=== PATIENT | female | born 1955 | race Caucasian/White ===

== ENCOUNTER 2020-03-18 08:27 | Outpatient (CLI) | payer MEDICARE, SELFPAY ==
--- NOTE | ~2020-03-18 | US_ITS ---
US abdomen complete EXAMINATION: US Abdomen Complete INDICATION: Normal liver function tests. PROCEDURE: Realtime High Resolution abdomen ultrasound. COMPARISON: No prior studies for comparison FINDINGS: Gallbladder is surgically absent. Common bile duct measures 4 mm. Liver echotexture within normal limits without focal mass. Pancreas within normal limits. Pancreati c tail is obscured by bowel gas. Spleen is unremarkeable. Renal echotexture is within normal limits bilaterally without hydronephrosis, contour deforming mass or renal stone. Right kidney measures 9.3 cm. Left kidney measures 11 cm. Visualized aspects of the aorta and IVC are within normal limits. Portal vein is patent. IMPRESSION: 1: Unremarkable abdominal ultrasound. Reviewed, dictated and finalized at location A. TAL SPECIALIST
== END 2020-03-18 08:28 | disposition home or self-care (01) ==
PROVIDERS: PCP Family Medicine; Visit Provider Family Medicine
DX: R94.5 Abnormal results of liver function studies (principal)
CPT/HCPCS: 76700

== ENCOUNTER 2021-10-10 10:22 | Outpatient (CLI) | payer MEDICARE, SELFPAY ==
[2021-10-10 19:00] LABS: Basophils Absolute Auto 0.1 K/mm3 (0.0-0.1); Basophils Percent Auto 0.8 % (0.2-1.2); Eosinophils Absolute Auto 0.4 K/mm3 (0-0.3); Eosinophils Percent Auto 5.3 % (0-4.4); Hematocrit 43.1 % (37.0-47.0); Hemoglobin 13.6 g/dL (12.0-15.0); Immature Granulocyte Absolute 0.01 K/mm3 (0.00-0.031); Immature Granulocyte Percent A 0.1 % (0-0.5); Lymphocytes Absolute Auto 2.26 K/mm3 (0.9-3.2); Lymphocytes Percent Auto 29.4 % (18.3-44.2); Mean Corpuscular HGB Conc 31.6 g/dl (32-36); Mean Corpuscular Hemoglobin 30.2 pg (26-34); Mean Corpuscular Volume 95.6 fl (80-100); Monocytes Absolute Auto 0.3 K/mm3 (0.1-0.6); Monocytes Percent Auto 4.3 % (2.6-8.5); Neutrophils Absolute Auto 4.6 K/mm3 (1.3-6.7); Neutrophils Percent Auto 60.1 % (45.5-73.1); Platelet Count Result 277 k/mm3 (150-375); Red Blood Count 4.51 M/mm3 (4.2-5.4); Red Cell Distribution Width 12.8 % (11.5-14.5); White Blood Count 7.7 K/mm3 (4.5-10.0)
[2021-10-10 20:18] LABS: Alanine Aminotransferase 27 U/L (6-35); Albumin Level 4.5 g/dL (3.5-5.1); Alkaline Phosphatase 60 U/L (38-126); Anion Gap 8 mmol/L (8-16); Aspartate Amino Transferase 34 U/L (14-36); Bilirubin,Total 1.6 mg/dL (0.2-1.3); Blood Urea Nitrogen 14 mg/dL (7-17); Calcium 9.2 mg/dL (8.4-10.2); Carbon Dioxide 33 mmol/L (22-30); Chloride 104 mmol/L (98-107); Cholesterol 138 mg/dL (0-200); Estimated Glomerular Filt Rate > 60; Glucose 97 mg/dL (65-110); HDL Direct 52 mg/dL; Potassium 4.2 mmol/L (3.4-5.0); Sodium 145 mmol/L (137-145); Triglycerides 113 mg/dL (<150)
[2021-10-10 20:26] LABS: Hepatitis C Virus Antibody Negative (Negative)
[2021-10-10 20:29] LABS: LDL Cholesterol Direct 52 mg/dL
== END 2021-10-10 10:23 | disposition home or self-care (01) ==
PROVIDERS: PCP Family Medicine; Visit Provider Family Medicine
DX: E55.9 Vitamin D deficiency, unspecified (principal); E78.2 Mixed hyperlipidemia; G47.33 Obstructive sleep apnea (adult) (pediatric); Z11.59 Encounter for screening for other viral diseases
CPT/HCPCS: 36415; 80053; 80061; 82306; 84443; 85025; 86803

== ENCOUNTER 2022-06-03 08:55 | Outpatient (CLI) | payer MEDICARE, SELFPAY ==
[2022-06-03 19:03] LABS: Alanine Aminotransferase 29 U/L (6-35); Albumin Level 4.4 g/dL (3.5-5.1); Alkaline Phosphatase 72 U/L (38-126); Anion Gap 9 mmol/L (8-16); Aspartate Amino Transferase 26 U/L (14-36); Basophils Absolute Auto 0.1 K/mm3 (0.0-0.1); Basophils Percent Auto 0.9 % (0.2-1.2); Bilirubin,Total 1.4 mg/dL (0.2-1.3); Blood Urea Nitrogen 10 mg/dL (7-17); Calcium 9.4 mg/dL (8.4-10.2); Carbon Dioxide 31 mmol/L (22-30); Chloride 102 mmol/L (98-107); Cholesterol 138 mg/dL (0-200); Eosinophils Absolute Auto 0.4 K/mm3 (0-0.3); Eosinophils Percent Auto 4.8 % (0-4.4); Estimated Glomerular Filt Rate > 60; Glucose 82 mg/dL (65-110); HDL Direct 55 mg/dL; Hematocrit 44.5 % (37.0-47.0); Hemoglobin 13.8 g/dL (12.0-15.0); Immature Granulocyte Absolute 0.01 K/mm3 (0.00-0.031); Immature Granulocyte Percent A 0.1 % (0-0.5); Lymphocytes Absolute Auto 2.29 K/mm3 (0.9-3.2); Lymphocytes Percent Auto 29.7 % (18.3-44.2); Mean Corpuscular Hemoglobin 29.2 pg (26-34); Mean Corpuscular Volume 94.3 fl (80-100); Mean Platelet Volume 10.8 fl (7.4-10.4); Monocytes Absolute Auto 0.4 K/mm3 (0.1-0.6); Monocytes Percent Auto 5.2 % (2.6-8.5); Neutrophils Absolute Auto 4.6 K/mm3 (1.3-6.7); Neutrophils Percent Auto 59.3 % (45.5-73.1); Platelet Count Result 292 k/mm3 (150-375); Potassium 4.1 mmol/L (3.4-5.0); Red Blood Count 4.72 M/mm3 (4.2-5.4); Red Cell Distribution Width 13.3 % (11.5-14.5); Sodium 142 mmol/L (137-145); Triglycerides 86 mg/dL (<150); White Blood Count 7.7 K/mm3 (4.5-10.0)
[2022-06-03 19:09] LABS: Vitamin D 25 Hydroxy 56.2 ng/mL
[2022-06-03 19:14] LABS: LDL Cholesterol Direct 63 mg/dL
== END 2022-06-03 08:56 | disposition home or self-care (01) ==
LOC: ANHGOSHLAB 08:56
PROVIDERS: PCP Family Medicine; Visit Provider Family Medicine
DX: E55.9 Vitamin D deficiency, unspecified (principal); M81.0 Age-related osteoporosis without current pathological fracture; R41.3 Other amnesia; Z79.899 Other long term (current) drug therapy
CPT/HCPCS: 36415; 80053; 80061; 82306; 84443; 85025

== ENCOUNTER 2022-10-22 23:12 | Outpatient (NON) | payer MEDICARE, SELFPAY | END 2022-10-22 23:13 | disposition home or self-care (01) | LOC: ANHLAB 23:14 | PROVIDERS: PCP Family Medicine; Visit Provider Family Medicine | DX: R39.9 Unspecified symptoms and signs involving the genitourinary system (principal) | CPT/HCPCS: 87086 ==

== ENCOUNTER 2022-11-12 12:30 | Outpatient (CLI) | payer MEDICARE, SELFPAY ==
[2022-11-12 19:43] LABS: Alanine Aminotransferase 28 U/L (6-35); Albumin Level 4.2 g/dL (3.5-5.1); Alkaline Phosphatase 55 U/L (38-126); Anion Gap 6 mmol/L (8-16); Aspartate Amino Transferase 63 U/L (14-36); Bilirubin,Total 2.1 mg/dL (0.2-1.3); Blood Urea Nitrogen 9 mg/dL (7-17); Calcium 9.6 mg/dL (8.4-10.2); Carbon Dioxide 33 mmol/L (22-30); Chloride 103 mmol/L (98-107); Estimated Glomerular Filt Rate > 60; Glucose 105 mg/dL (65-110); Sodium 142 mmol/L (137-145)
[2022-11-12 20:13] LABS: Thyroid Stimulating Hormone 0.858 uIU/mL (0.465-4.680)
== END 2022-11-12 12:31 | disposition home or self-care (01) ==
LOC: ANHGOSHLAB 12:32
PROVIDERS: PCP Family Medicine; Visit Provider Family Medicine
DX: R25.3 Fasciculation (principal)
CPT/HCPCS: 36415; 80053; 84443

== ENCOUNTER → 2022-11-14 10:07 | Outpatient (CLI) | payer MEDICARE, SELFPAY ==
--- NOTE | ~2022-11-14 | US_ITS ---
EXAMINATION: US abdomen limited DATE: 11/14/2022 11:14 INDICATION: Elevated liver enzymes TECHNIQUE: Multiple grayscale and Doppler ultrasound images of the abdomen were obtained. COMPARISON: 03/18/2020 FINDINGS: The head and body of the pancreas are normal. The pancreatic tail is obscured by bowel gas. The liver is normal with normal echogenicity and echotexture. No surface nodularity. Normal hepatope jo flow in the main portal vein. There are changes of cholecystectomy. The normal common bile duct m easures 6 mm. IMPRESSION: 1. No sonographic correlate for the patient's symptoms. Reviewed, dictated and finalized at location B.
== END ==
PROVIDERS: PCP Family Medicine; Visit Provider Family Medicine
DX: R94.5 Abnormal results of liver function studies (principal)
CPT/HCPCS: 76705

== ENCOUNTER 2022-12-03 05:53 | Emergency (ER) | payer MEDICARE, SELFPAY ==
--- NOTE | ~2022-12-03 | CT_ITS ---
EXAMINATION: CT brain wo con DATE: 12/03/2022 07:20 INDICATION: Head injury. TECHNIQUE: Computed tomography (CT) of the head was performed without intravenous contrast. The mA wa s adjusted according to patient size. Iterative reconstruction technique was employed. The dose-lengt h product was 681.00 mGy-cm. COMPARISON: None FINDINGS: There are scattered areas of low attenuation in the cerebral white matter. There is an old lacunar infarct in left thalamus. There is no intracranial hemorrhage, acute infarction, or abnormal intracranial mass lesion. The ventricles are normal in size. There is a left frontal scalp laceration with soft tissue swelling. There is mild mucosal thickening in the ethmoid sinuses. The orbits are n ormal. The mastoid air cells are normal. IMPRESSION: 1. Old lacunar infarct in left thalamus. 2. Moderate nonspecific cerebral white matter disease, which likely represents chronic small vessel i schemic disease. Reviewed, dictated and finalized at location E. IMPRESSION: 1. Old lacunar infarct in left thalamus. 2. Moderate nonspecific cerebral white matter disease, which likely represents chronic small vessel ischemic disease.
[2022-12-03 05:55] VITALS: BP 133/75; PULSE 74; RESP 18; TEMP 36.3; O2SAT 100
--- NOTE | 2022-12-03 07:15 | ED.WOUNDLAC ---
HPI - Wound/Laceration General Chief Complaint: Wound/Laceration Stated Complaint: fell out of bed and hit the nightstand Time Seen by Provider: 12/03/22 06:58 History of Present Illness HPI narrative: Patient is a 67-year-old female who presents ER status post falling out of bed. She struck her head on the nightstand. She has a laceration to her forehead. It is oozing blood. No LOC. No change in vision or hearing. No extremity injury. No numbness/tingling. Denies headache. Related Data Home Medications Medication Instructions Recorded Confirmed aspirin 81 mg tablet,delayed 81 mg PO DAILY 08/09/19 11/06/22 release (Adult Aspirin Regimen) calcium carbonate 600 mg calcium 600 mg PO DAILY 08/09/19 11/06/22 (1,500 mg) tablet acetaminophen 500 mg tablet 500 mg PO Q6H PRN 05/14/22 11/06/22 (Tylenol Extra Strength) cholecalciferol (vitamin D3) 25 25 mcg PO DAILY 05/14/22 11/06/22 mcg (1,000 unit) capsule donepezil 5 mg tablet (Aricept) 5 mg PO QHS 05/14/22 11/06/22 melatonin 5 mg capsule 5 mg PO 05/14/22 11/06/22 Allergies Allergy/AdvReac Type Severity Reaction Status Date / Time animal dander Allergy Unknown -cats(sneez Verified 11/06/22 14:24 ing/itchyey es) naproxen AdvReac Mild Leg cramps Verified 12/03/22 07:20 tramadol AdvReac Unknown Nausea Verified 12/03/22 07:20 Review of Systems Review of Systems: All systems reviewed & are unremarkable except as noted in HPI and below Cardiovascular: Cardiovascular: Reports no additional cardiovascular complaints Respiratory: Respiratory: Reports no additional respiratory complaints Gastrointestinal: Gastrointestinal: Reports no additional gastrointestinal complaints Genitourinary: Genitourinary: Reports no additional female genitourinary complaints Neurologic: Reports system reviewed and no additional complaints, except as documented PMF Past Medical History Medical History Adhesive capsulitis of left shoulder Dysesthesia Fam hx-osteoporosis FH: abdominal aortic aneurysm Low back pain Memory change Normal colonoscopy 2014 Other seasonal allergic rhinitis Surgical History Surgical History H/O vaginal hysterectomy 2006 Family History Family History Mother Family history of osteoporosis Family history of aortic aneurysm Father Family history of cardiovascular disease Family history of coronary artery disease Social History Social History Social History: Caffeine-none Smoking status: Never smoker Alcohol intake: never Substance use: never Substance use type: does not use Lack of Transportation: No Lack of Food: Never True Current Housing: I Have Housing Concerned About Future Housing: No Difficulty Paying Gas/Electric Bills: No Difficulty Paying for Meds: Decline to Answer Currently Unemployed: No Education: Bachelor's Degree Difficulty w/ Childcare or Family Care: No Exam Narrative: GENERAL: Well-appearing, well-nourished, and in no acute distress. HEAD: Normocephalic, 2.5 cm laceration above the left eyebrow. EYES: PERRL and EOMI. ABDOMEN: Soft, nontender, nondistended. EXTREMITIES: Normal range of motion. No edema. SKIN: Warm, dry, no rash. NEURO: No focal deficits. Alert and oriented x3. PSYCH: Normal mood and affect. Course Vital Signs Vital signs: Vital Signs Temperature 97.4 F L 12/03/22 05:55 Pulse Rate 74 12/03/22 05:55 Respiratory Rate 18 12/03/22 05:55 Blood Pressure 133/75 12/03/22 05:55 Pulse Oximetry 100 12/03/22 05:55 Oxygen Delivery Room Air 12/03/22 05:55 Temperature 97.4 F L 12/03/22 05:55 Pulse Rate 74 12/03/22 05:55 Respiratory Rate 18 12/03/22 05:55 Blood Pressure 133/75 12/03/22 05:55 Pul
== END 2022-12-03 07:57 | disposition home or self-care (01) ==
PROVIDERS: Emergency Provider Emergency Medicine; PCP Family Medicine
DX: S01.81XA Laceration without foreign body of other part of head, initial encounter (principal); Z90.710 Acquired absence of both cervix and uterus; Z79.82 Long term (current) use of aspirin; R90.82 White matter disease, unspecified; W06.XXXA Fall from bed, initial encounter
CPT/HCPCS: 12011; 70450; 99284

== ENCOUNTER 2023-01-22 15:20 | Outpatient (NON) | payer MEDICARE, SELFPAY | END 2023-01-22 15:21 | disposition home or self-care (01) | LOC: ANHGOSHLAB 15:21 | PROVIDERS: PCP Family Medicine; Visit Provider Family Medicine | DX: N39.3 Stress incontinence (female) (male) (principal) | CPT/HCPCS: 87086; 87088 ==

== ENCOUNTER 2023-01-27 15:30 | Emergency (ER) | payer MEDICARE, SELFPAY ==
[2023-01-27] VITALS (11 sets, daily range): BP systolic 136–164; BP diastolic 62–72; PULSE 84–99; RESP 12–20; TEMP 36.5; O2SAT 97–99
--- NOTE | ~2023-01-27 | CT_ITS ---
EXAMINATION: CT abdomen pelvis w con DATE: 01/27/2023 18:50 INDICATION: RUQ pain, N/V TECHNIQUE: Computed tomography (CT) of the abdomen and pelvis was performed with 100 mL Omnipaque-350 intravenous contrast. Automated exposure control and iterative reconstruction technique were employe d. The dose-length product was 301.99 mGy-cm. COMPARISON: None. FINDINGS: Lower thorax: Senescent changes in the lungs. Liver: Normal. Biliary/Gallbladder: Gallbladder is absent. No bile duct dilation. Pancreas: No mass or duct dilation. Spleen: Multiple hypodensities throughout the spleen, not clearly cystic. Adrenals:No mass. Kidneys: 3 mm right lower pole nonobstructing calcification. No hydronephrosis. Left midpole hypodens ity too small to characterize but most likely represents a cyst. GI tract: Mild antral wall edema. No small or large bowel dilation. Normal appendix. Diverticulosis w ithout diverticulitis. Mesentery/Peritoneum: No ascites, mass, or free air. Retroperitoneum: No mass. Atherosclerotic abdominal aortic and/or arterial calcifications. Pelvis: Normal urinary bladder. Absent uterus. Soft Tissues: Soft tissues and body wall unremarkable. Bones: No acute osseous finding. IMPRESSION: Multiple splenic lesions, differential includes lymphoma, metastases, sarcoid, fungal infection, and splenic siderosis. Mild antral gastritis. Reviewed, dictated and finalized at location K. RMATION TECHNOLOGY ASSISTANT
--- NOTE | 2023-01-27 16:43 | ED.ABDPAIN ---
HPI - Abdominal Pain General Chief Complaint: Abdominal Pain <SURJIT Dodge Last Filed: 01/27/23 16:51> Stated Complaint: abd pain <SURJIT Dodge Last Filed: 01/27/23 16:51> Time Seen by Provider: 01/27/23 17:14 <SURJIT Dodge Last Filed: 01/27/23 16:51> Source: patient and old records reviewed <SURJIT Dodge Last Filed: 01/27/23 16:51> Mode of arrival: ambulatory <SURJIT Dodge Filed: 01/27/23 16:51> Limitations: no limitations <SURJIT Dodge Last Filed: 01/27/23 16:51> History of Present Illness HPI narrative: Patient is a 67 y/o female who presents to the ED with c/o N/V. Patient reports she went to [employer] for lunch and went shopping afterwards. She developed nausea and vomiting on the way home. Reported several episodes. She does still feel nauseous currently. She states she has had intermittent pain and knots in her RUQ for the last 1 week. This pain was present with the vomiting today. She has not taken anything for the pain. Denies fevers today. She denies dysuria/hematuria but notes she is currently on Bactrim for a UTI, dx by her PCP on 01/22. Per records, urine cx was negative. <SURJIT Dodge Last Filed: 01/27/23 16:51> Related Data Home Medications: Home Medications Medication Instructions Recorded Confirmed aspirin 81 mg tablet,delayed 81 mg PO DAILY 08/09/19 01/22/23 release (Adult Aspirin Regimen) calcium carbonate 600 mg calcium 600 mg PO DAILY 08/09/19 01/22/23 (1,500 mg) tablet acetaminophen 500 mg tablet 500 mg PO Q6H PRN 05/14/22 01/22/23 (Tylenol Extra Strength) cholecalciferol (vitamin D3) 25 25 mcg PO DAILY 05/14/22 01/22/23 mcg (1,000 unit) capsule donepezil 5 mg tablet (Aricept) 5 mg PO QHS 05/14/22 01/22/23 suvorexant 10 mg tablet (Belsomra) 10 mg PO QHS 01/08/23 01/22/23 <Bharti Earl PA-C - Last Filed: 01/27/23 16:51> Allergies/Adverse Reactions: Allergies Allergy/AdvReac Type Severity Reaction Status Date / Time animal dander Allergy Unknown -cats(sneez Verified 01/22/23 13:23 ing/itchyey es) naproxen AdvReac Mild Leg cramps Verified 01/22/23 13:23 tramadol AdvReac Unknown Nausea Verified 01/22/23 13:23 <Bharti Earl PA-C - Last Filed: 01/27/23 16:51> Review of Systems Review of Systems: CONSTITUTIONAL: Denies fever GASTROINTESTINAL: Reports abdominal pain, nausea, vomiting. Denies diarrhea. GENITOURINARY: Denies dysuria <Luna Traore PA-C - Last Filed: 01/27/23 20:19> All systems reviewed & are unremarkable except as noted in HPI and below <Luna Traore PA-C - Last Filed: 01/27/23 20:19> Constitutional: Constitutional: Denies fever(s) <Bharti Earl PA-C - Last Filed: 01/27/23 16:51> Gastrointestinal: Gastrointestinal: Reports abdominal pain, Reports nausea and Reports vomiting <Bharti Earl PA-C - Last Filed: 01/27/23 16:51> [facility] Past Medical History Medical History: Medical History Adhesive capsulitis of left shoulder Dysesthesia Fam hx-osteoporosis FH: abdominal aortic aneurysm Low back pain Memory change Normal colonoscopy 2014 Other seasonal allergic rhinitis <Bharti Earl PA-C - Last Filed: 01/27/23 16:51> Surgical History Surgical History: Surgical History H/O vaginal hysterectomy 2006 <SURJIT Dodge Last Filed: 01/27/23 16:51> Family History Family History: Family History Mother Family history of osteoporosis Family history of aortic aneurysm Father Family history of cardiovascular disease Family history of coronary artery disease <Bharti Earl PA-C - Last Filed: 01/27/23 16:51> So
--- NOTE | 2023-01-27 16:46 | ECG_ITS ---
Measurements Intervals [place] Rate: 91 P: 71 CT: 183 QRS: -21 QRSD: 88 T: 54 QT: 388 QTc: 478 Interpretive Statements SINUS RHYTHM POSSIBLE LEFT ATRIAL ENLARGEMENT INCOMPLETE RIGHT BUNDLE BRANCH BLOCK BASELINE ARTIFACT- I, III, AVL, AVF BORDERLINE ECG NO PREVIOUS ECG AVAILABLE FOR COMPARISON Electronically Signed On 01-27-2023 20:56:05 ELECTROPLATING TECHNICIAN by Gerald Callahan D.O.
[2023-01-27] MEDS: ONDANSETRON INJ 4 MG/2 ML VIAL IV PUSH (17:01)
[2023-01-27] MEDS: SODIUM CHLORIDE 0.9% IV 1,000 ML 999 ML IV CONT (17:09)
[2023-01-27 17:16] LABS: Basophils Absolute Auto 0.1 K/mm3 (0.0-0.1); Basophils Percent Auto 0.5 % (0.2-1.2); Eosinophils Absolute Auto 0.1 K/mm3 (0-0.3); Eosinophils Percent Auto 1.1 % (0-4.4); Hematocrit 45.7 % (37.0-47.0); Hemoglobin 14.7 g/dL (12.0-15.0); Immature Granulocyte Absolute 0.03 K/mm3 (0.00-0.031); Immature Granulocyte Percent A 0.3 % (0-0.5); Lymphocytes Percent Auto 15.3 % (18.3-44.2); Mean Corpuscular HGB Conc 32.2 g/dl (32-36); Mean Corpuscular Hemoglobin 29.7 pg (26-34); Mean Corpuscular Volume 92.3 fl (80-100); Monocytes Absolute Auto 0.4 K/mm3 (0.1-0.6); Neutrophils Absolute Auto 8.2 K/mm3 (1.3-6.7); Neutrophils Percent Auto 78.8 % (45.5-73.1); Platelet Count Result 289 k/mm3 (150-375); Red Blood Count 4.95 M/mm3 (4.2-5.4); Red Cell Distribution Width 13.1 % (11.5-14.5); White Blood Count 10.4 K/mm3 (4.5-10.0)
[2023-01-27 18:21] LABS: Alanine Aminotransferase 30 U/L (6-35); Albumin Level 4.2 g/dL (3.5-5.1); Alkaline Phosphatase 65 U/L (38-126); Anion Gap 12 mmol/L (8-16); Aspartate Amino Transferase 29 U/L (14-36); Bilirubin,Total 1.7 mg/dL (0.2-1.3); Blood Urea Nitrogen 12 mg/dL (7-17); Calcium 9.2 mg/dL (8.4-10.2); Carbon Dioxide 24 mmol/L (22-30); Chloride 105 mmol/L (98-107); Estimated CRCL calculation 55 ml/min; Estimated Glomerular Filt Rate > 60; Glucose 117 mg/dL (65-110); Lipase 71 U/L (23-300); Potassium 3.6 mmol/L (3.4-5.0); Sodium 141 mmol/L (137-145)
[2023-01-27 18:32] LABS: Appearance Urine Cloudy (Clear); Bacteria Urine None Seen /hpf; Bilirubin Urine Negative (Negative); Blood Urine Negative (Negative); Color Urine Yellow (Yellow); Glucose Urine UA Negative (Negative); Ketones Urine Negative (Negative); Leukocyte Esterase Ur 2+ LEU/UL (Negative); Nitrate Urine Negative (Negative); Non Pathogenic Casts 0-2; Protein Urine Negative (Negative); RBC Urine 0-2 /hpf (0-2); Specific Grav Ur 1.011 (1.001-1.035); Squamous Epithelial Cell Urine None seen /hpf (Few)
[2023-01-27 18:35] LABS: Add Urine Microscopic? YES
[2023-01-27 18:35] LABS: Influenza A QL RT-PCR Negative (Negative); Influenza B QL RT-PCR Negative (Negative); SARS-CoV-2 RNA PCR Negative (Negative)
== END 2023-01-27 20:24 | disposition home or self-care (01) ==
PROVIDERS: Physician Assistant; Emergency Provider Physician Assistant; PCP Family Medicine
DX: K29.00 Acute gastritis without bleeding (principal); D73.9 Disease of spleen, unspecified; R82.998 Other abnormal findings in urine; Z20.822 Contact with and (suspected) exposure to COVID-19
CPT/HCPCS: 36415; 74177; 80053; 81001; 83690; 85025; 87086; 87636; 93005; 96361; 96374; 99284; J2405; J7030; Q9967

== ENCOUNTER → 2023-02-03 13:56 | Outpatient (CLI) | payer MEDICARE, SELFPAY ==
--- NOTE | ~2023-02-03 | XR_ITS ---
XR chest 2V 02/03/2023 14:13 Indication: Neck swelling Procedure: 2 view chest Comparison: No prior studies for comparison. Findings: Heart size normal. No No focal air space disease, pulmonary edema, pleural effusion or susp ected pneumothorax. No acute osseous abnormality. Impression: 1: No acute cardiopulmonary disease. Reviewed, dictated and finalized at location L. E COVER FOLDER Impression: 1: No acute cardiopulmonary disease.
== END ==
PROVIDERS: PCP Family Medicine; Visit Provider Family Medicine
DX: D73.89 Other diseases of spleen (principal)
CPT/HCPCS: 71046

== ENCOUNTER 2023-02-06 06:36 | Outpatient (CLI) | payer MEDICARE, SELFPAY ==
[2023-02-06 07:16] LABS: Basophils Absolute Auto 0.1 K/mm3 (0.0-0.1); Basophils Percent Auto 1.2 % (0.2-1.2); Eosinophils Absolute Auto 0.4 K/mm3 (0-0.3); Eosinophils Percent Auto 6.9 % (0-4.4); Hematocrit 45.6 % (37.0-47.0); Hemoglobin 14.5 g/dL (12.0-15.0); Immature Granulocyte Absolute 0.02 K/mm3 (0.00-0.031); Immature Granulocyte Percent A 0.3 % (0-0.5); Lymphocytes Absolute Auto 2.35 K/mm3 (0.9-3.2); Lymphocytes Percent Auto 39.6 % (18.3-44.2); Mean Corpuscular HGB Conc 31.8 g/dl (32-36); Mean Corpuscular Hemoglobin 30.1 pg (26-34); Mean Corpuscular Volume 94.6 fl (80-100); Monocytes Absolute Auto 0.3 K/mm3 (0.1-0.6); Monocytes Percent Auto 5.2 % (2.6-8.5); Neutrophils Absolute Auto 2.8 K/mm3 (1.3-6.7); Neutrophils Percent Auto 46.8 % (45.5-73.1); Platelet Count Result 287 k/mm3 (150-375); Red Blood Count 4.82 M/mm3 (4.2-5.4); Red Cell Distribution Width 13.3 % (11.5-14.5); White Blood Count 5.9 K/mm3 (4.5-10.0)
== END 2023-02-06 06:37 | disposition home or self-care (01) ==
PROVIDERS: PCP Family Medicine; Visit Provider Family Medicine
DX: D72.829 Elevated white blood cell count, unspecified (principal)
CPT/HCPCS: 36415; 85025

== ENCOUNTER 2023-03-16 12:30 | Outpatient (RCR) | payer MEDICARE, SELFPAY ==
--- NOTE | 2023-02-04 12:06 | OPREHPOC ---
Outpatient Therapy Plan of Care This is a Multidisciplinary Plan of Care that may contain components documented by all disciplines (PT, OT, and ST.) PT Problem 1 PT Problem #1 Knowledge Deficit PT Goal 1 Goal *indep with HEP PT Problem 2 PT Problem #2 Pain PT Goal 1 Goal *monitor pain in back and hips during session PT Problem 3 PT Problem #3 Impaired Strength PT Goal 1 Goal pt perform 20 reps with good control 1* side lying hip abduction R 2* side lying hip abduction L 3* supine bridge single leg standing x 10 seconds with good stability 4* R 5* L PT Problem 4 PT Problem #4 Impaired Functional Mobil PT Goal 1 Goal 1* pt ambulate 450' with the 2 minute walking test 2* Tinetti balance/gait score of 27/28 3* 5 reps sit/stand time of 14 seconds 4* pt transfer sit/floor with use of UE on mat, modified indep
--- NOTE | 2023-02-04 12:06 | PTOPEVAL1 ---
Assessment and note entered by Madeline Mclean, PT Evaluation Information Assessment Status Evaluation Diagnosis low back pain, s/p TIA, gait imbalance Onset about 1 year ago Subjective Information more problems with walking and balance, walking slower and issues getting around airport; some times dizzy and off balance; one fall, rolled out of bed early in AM and head hit night stand; at home, generally lie down, more secure, afraid of falling, more safe than sitting down. having issues with getting up from lying down, getting out of bath tub for bath and avoid steps-- insecure and a risk for falling; is having some memory issues; present during eval. ACTIVITY: home with , basement stairs-- avoids them; if is not home, she does not go down stairs, take shower or any risks to her balance. Is interested in joining a fitness center for more exercise. do not have any fitness equipment at home; Reported Pain Level Pain Score 2: Self Report Additional Pain Score Comments pain range of 1-4/10; back and L hip increase pain: getting out of bed, activity, walking Assessment PT Clinical Summary Violeta has the diagnosis of low back pain, decreased mobility. Her concern is fear of falling. She does have some memory issues, but was cooperative at evaluation and wants to walk better. Currently, does not do any fitness activity and has had gradual decrease in activity level--mostly stays home, but wants to go visit children and grandchildren. This involves more walking and going through the airport. Her Reggie was present during the eval and supportive to pt. She reports dizzy, imbalance and hard to get out of bed,bath tub and up from chairs. With the evaluation: she has decreased LE strength; 2 minute walking test distance of 375'; Tinetti gait / balance score of 23/28; vestibular BPPV testing was negative; with standing 360' turn she reported dizzy. Skilled PT services a
--- NOTE | 2023-03-16 13:24 | PTOPDC ---
Assessment and note entered by Madeline Mclean, PT Evaluation Information Assessment Status Discharge Diagnosis low back pain, s/p TIA, gait imbalance Onset about 1 year ago Subjective Information more steady with balance; been doing the exercises at home; have not had any falls since coming for therapy; problems getting up out of the bath tub hard to get up from the couch, standing up; went to visit her daughter in [place] and left her exercises there--needs another copy if she can; agree to discharge PT and continue with her exercises at home. Reported Pain Level Pain Score 5: Self Report Assessment PT Clinical Summary Violeta has received a total of 6 PT sessions. Compared to the initial evaluation: increase strength of LE's with mat exercises; 2 minute walking test distance increased from 375' to 450'; Tintetti balance score improved by 1 point and 5 reps sit/stand by 1 second; she is able to transfer sitting/floor with use of UE on mat, indep with verbal instructions; education completed for HEP; she has not had any falls since attending therapy, and she no longer reports a fear of falling ; The goals were partially met. Violeta and her agree to d/c PT services and continue with the exercises at home. Discharge PT. Plan of Care PT Services Indicated No
== END 2023-03-16 13:46 | disposition home or self-care (01) ==
LOC: ANHPT 12:30
PROVIDERS: PCP Family Medicine; Visit Provider Family Medicine
DX: R26.2 Difficulty in walking, not elsewhere classified (principal); Z86.73 Personal history of transient ischemic attack (TIA), and cerebral infarction without residual deficits
CPT/HCPCS: 97110; 97161; 97530

== ENCOUNTER → 2023-03-26 10:19 | Outpatient (CLI) | payer MEDICARE, SELFPAY ==
--- NOTE | ~2023-03-26 | US_ITS ---
EXAMINATION: US abdomen complete DATE: 03/26/2023 10:42 INDICATION: Multiple splenic lesions on CT TECHNIQUE: Multiple grayscale and Doppler ultrasound images of the abdomen were obtained. COMPARISON: CT, 01/27/2023 FINDINGS: Bowel gas obscures visualization of the pancreas. The visualized portions of the pancreas a re unremarkable. The liver is normal with normal echogenicity and echotexture. No surface nodularity. Normal hepatopetal flow in the main portal vein. Changes of cholecystectomy are noted. The normal co mmon bile duct measures 4 mm. There was no sonographic Huertas sign. The visualized portions of the ao rta and inferior vena cava are normal. The spleen measures 7.3 cm. There are multiple subtle, ill-defined hyperechoic lesions of the spleen. The largest measures approximately 1.9 cm. The right kidney measures 9.7 x 4.4 x 4.6 cm. There is a 10 mm stone of the right kidney lower pole. The left kidney measures 11.6 x 4.4 x 4.7 cm. The kidneys demonstrate normal parenchymal echogenicity. There is no hydronephrosis. IMPRESSION: 1. Multiple ill-defined lesions of the spleen with differential as previously discussed. Consider bio psy. Reviewed, dictated and finalized at location F. CCO SORTER IMPRESSION: 1. Multiple ill-defined lesions of the spleen with differential as previously d iscussed. Consider biopsy.
== END ==
PROVIDERS: PCP Family Medicine; Visit Provider Family Medicine
DX: D73.89 Other diseases of spleen (principal)
CPT/HCPCS: 76700

== ENCOUNTER 2023-07-17 10:33 | Outpatient (CLI) | payer MEDICARE, SELFPAY ==
--- NOTE | ~2023-07-17 | XR_ITS ---
Lumbosacral Spine: AP and lateral views Clinical History: Pain Findings: Mild levoscoliosis present. The vertebral bodies and posterior elements are intact. There is moderate degenerative disc narrowing at L1-L2. There is moderate to advanced facet arthropathy L4- L5 and L5-S1. The sacroiliac joints are normally outlined. Impression: Degenerative change, as detailed above. Levoscoliosis. Reviewed, dictated and finalized at location . Impression: Degenerative change, as detailed above. Levoscoliosis.
--- NOTE | ~2023-07-17 | XR_ITS ---
AP view of the pelvis and AP and lateral views of the left hip Clinical history: Pain Findings: No acute fracture or dislocation is seen. Osseous alignment is anatomic. Bilateral hip and SI joint spaces are preserved. Soft tissues are unremarkable. Impression: No significant abnormality is seen. Reviewed, dictated and finalized at [facility]. Impression: No significant abnormality is seen.
== END 2023-07-17 10:34 ==
LOC: GOSHIMG 10:34
PROVIDERS: PCP Family Medicine; Visit Provider Nurse Practitioner Family
DX: M41.86 Other forms of scoliosis, lumbar region (principal); M47.896 Other spondylosis, lumbar region; M25.552 Pain in left hip
CPT/HCPCS: 72100; 73502

== ENCOUNTER 2023-08-20 11:30 | Outpatient (RCR) | payer MEDICARE, SELFPAY ==
--- NOTE | 2023-08-10 17:21 | PTOPEVAL1 ---
Assessment and note entered by Nuvia Ayala, PT Evaluation Information Assessment Status Evaluation Diagnosis Dorsalgia, L low Back and R hip pain Therapy Conditions weakness, pain, balance and gait impairment Onset approx a month ago Subjective Information Pt reports starting to feel pain to lowback and hips area; unable to recall significant event that caused it. Walking distances, sitting and standing for long periods of time increases pain. Medication and heat/cold modalities relieve some of the pain. Pt also states she has alzheimer's Disease and has increased fear of falling. States that she is hopeful that therapy can help improve her strength and mobility. Reported Pain Level Pain Score 4,4: Self Report Assessment PT Clinical Summary Pt is 67yo female who presents to therapy with pain to L lowerback, R hip; decreased mobility to B hips, weakness to BLE R > L, postural deficits, balance and gait impairments. Significant PMHx include dementia, TIA with some weakness noted to R side. Pt will benefit from continued skilled PT to improve functional mobility and reduce risk for falls. Plan of Care Interventions Gait Training,Manual Therapy,Neuro Re-education, Patient/Caregiver Education,Therapeutic Activities, Therapeutic Exercise PT Services Indicated Yes Treatment Frequency and 2x/wk x 8 visits Duration These treatments will address the objective and functional deficits as defined above. The patient will be advanced safely and appropriately in order for the patient to progress towards his/her prior level of function. Additional exercises will be introduced and as well as a comprehensive home exercise program upon discharge, if needed, ?to ensure carryover of functional gains achieved in the clinic. This treatment plan has been reviewed and agreement upon by the patient.
--- NOTE | 2023-10-29 10:50 | PCPTNOTE ---
Mrs. Kelley attended a total of 4 treatment sessions from 08/10/23 to 08/20/23. She provided reports of decreasing pain during her last session and was able to complete therapeutic activities focused on standing endurance and function without pain increase. She has not returned to the clinic and will be discharged from our care at this time. Thank you for the referral of this patient. Osiel Washington, MPT
== END 2023-10-26 10:05 | disposition home or self-care (01) ==
LOC: ANHPT 11:30
PROVIDERS: PCP Family Medicine; Visit Provider Nurse Practitioner Family
DX: M54.9 Dorsalgia, unspecified (principal)
CPT/HCPCS: 97110; 97116; 97140; 97161; 97530

== ENCOUNTER 2023-09-11 07:35 | Outpatient (CLI) | payer MEDICARE, SELFPAY ==
[2023-09-11 08:32] LABS: Basophils Absolute Auto 0.1 K/mm3 (0.0-0.1); Basophils Percent Auto 0.9 % (0.2-1.2); Eosinophils Absolute Auto 0.3 K/mm3 (0-0.3); Eosinophils Percent Auto 4.8 % (0-4.4); Hematocrit 44.7 % (37.0-47.0); Hemoglobin 14.2 g/dL (12.0-15.0); Immature Granulocyte Absolute 0.01 K/mm3 (0.00-0.031); Immature Granulocyte Percent A 0.2 % (0-0.5); Lymphocytes Absolute Auto 1.96 K/mm3 (0.9-3.2); Lymphocytes Percent Auto 30.6 % (18.3-44.2); Mean Corpuscular HGB Conc 31.8 g/dl (32-36); Mean Corpuscular Hemoglobin 30.1 pg (26-34); Mean Corpuscular Volume 94.9 fl (80-100); Mean Platelet Volume 10.1 fl (7.4-10.4); Monocytes Absolute Auto 0.4 K/mm3 (0.1-0.6); Monocytes Percent Auto 6.1 % (2.6-8.5); Neutrophils Absolute Auto 3.7 K/mm3 (1.3-6.7); Neutrophils Percent Auto 57.4 % (45.5-73.1); Platelet Count Result 271 k/mm3 (150-375); Red Blood Count 4.71 M/mm3 (4.2-5.4); White Blood Count 6.4 K/mm3 (4.5-10.0)
[2023-09-11 08:43] LABS: Alanine Aminotransferase 23 U/L (6-35); Albumin Level 4.3 g/dL (3.5-5.1); Alkaline Phosphatase 62 U/L (38-126); Anion Gap 3 mmol/L (4-12); Aspartate Amino Transferase 25 U/L (14-36); Bilirubin,Total 2.5 mg/dL (0.2-1.3); Blood Urea Nitrogen 15 mg/dL (7-17); Calcium 9.5 mg/dL (8.4-10.2); Carbon Dioxide 34 mmol/L (22-30); Chloride 105 mmol/L (98-107); Cholesterol 134 mg/dL (0-200); Estimated Glomerular Filt Rate > 60; Glucose 100 mg/dL (65-110); HDL Direct 58 mg/dL; Potassium 3.7 mmol/L (3.4-5.0); Sodium 142 mmol/L (137-145); Triglycerides 102 mg/dL (<150)
[2023-09-11 08:55] LABS: LDL Cholesterol Direct 65 mg/dL
== END 2023-09-11 07:36 | disposition home or self-care (01) ==
PROVIDERS: PCP Family Medicine; Visit Provider Family Medicine
DX: F01.50 Vascular dementia, unspecified severity, without behavioral disturbance, psychotic disturbance, mood disturbance, and anxiety (principal); E78.2 Mixed hyperlipidemia; D48.5 Neoplasm of uncertain behavior of skin; M81.0 Age-related osteoporosis without current pathological fracture
CPT/HCPCS: 36415; 80053; 80061; 82306; 82607; 82728; 84443; 85025

== ENCOUNTER 2024-04-29 09:28 | Outpatient (CLI) | payer MEDICARE, SELFPAY ==
--- NOTE | ~2024-04-29 | XR_ITS ---
EXAMINATION: XR sacrum coccyx min 2V DATE: 04/29/2024 09:53 INDICATION: Unspecified injury of lower back, initial encounter. TECHNIQUE: 3 views of the sacrum and coccyx were obtained. COMPARISON: CT abdomen and pelvis 01/27/2023 FINDINGS: There is lumbar levoscoliosis and severe spondylosis. No fracture. There is mild osteoarthr itis of the sacroiliac joints. IMPRESSION: 1. Mild osteoarthritis of the sacroiliac joints. Reviewed, dictated and finalized at location A. D AIDE
--- NOTE | ~2024-04-29 | XR_ITS ---
EXAMINATION: XR lumbar spine 2-3V DATE: 04/29/2024 09:53 INDICATION: Unspecified injury of low back, initial encounter. TECHNIQUE: 3 views of lumbar spine were obtained. COMPARISON: Lumbar spine radiographs 07/17/2023, CT abdomen and pelvis 01/27/2023 FINDINGS: There is 15 degrees levoscoliosis of lumbar spine. Vertebral body heights are normal. There is moderately decreased disc height at L1-L2, mildly decreased disc at L2-L3, moderately decreased d isc height at L3-L4, and severely decreased disc height at L5-S1. There is multilevel facet joint ost eoarthritis, severe on the left at L5-S1. IMPRESSION: 1. Severe lumbar spondylosis. 2. Lumbar levoscoliosis. Reviewed, dictated and finalized at location A. UITER ACCOUNT MANAGER
== END 2024-04-29 09:29 | disposition home or self-care (01) ==
LOC: GOSHIMG 09:28
PROVIDERS: PCP Nurse Practitioner Family; Visit Provider Nurse Practitioner Family
DX: M47.898 Other spondylosis, sacral and sacrococcygeal region (principal); M47.816 Spondylosis without myelopathy or radiculopathy, lumbar region; M41.86 Other forms of scoliosis, lumbar region; S39.92XA Unspecified injury of lower back, initial encounter; X58.XXXA Exposure to other specified factors, initial encounter
CPT/HCPCS: 72100; 72220

== ENCOUNTER 2024-11-10 08:09 | Outpatient (CLI) | payer MEDICARE, SELFPAY ==
--- NOTE | ~2024-11-10 | MM_ITS ---
EXAMINATION: MM screening [facility] BI w ofe HISTORY: Screening TECHNIQUE: Craniocaudal and mediolateral oblique 3-D tomosynthesis images were obtained and synthetic 2-D images were generated. CAD analysis was submitted and interpreted. COMPARISON: Mammograms from 06/19/2022, 02/19/2021 BREAST PARENCHYMAL COMPOSITION: The breasts are heterogeneously dense, which may obscure small masses. FINDINGS: There is no evidence of suspicious mass, calcification, or architectural distortion to suggest malignancy. Focal asymmetry in the upper right breast from the 11 to 1:00 position, middle depth. Limited study due to the patient's condition. Focal asymmetry in the upper outer quadrant of the left breast, middle depth. IMPRESSION: 1. Focal asymmetry in the upper right breast from the 11 to 1:00 position. The study is incomplete. A diagnostic right breast mammogram and a diagnostic right breast ultrasound is recommended. 2. Focal asymmetry in the upper outer quadrant of the left breast. The study is incomplete. A diagnostic left breast mammogram and a diagnostic left breast ultrasound is recommended. BI-RADS Category 0: Incomplete-needs additional imaging evaluation. Reviewed, dictated and finalized at location Q. IMPRESSION: 1. Focal asymmetry in the upper right breast from the 11 to 1:00 position. The study is incomplete. A diagnostic right breast mammogram and a diagnostic right breast ultrasound is recommended. 2. Focal asymmetry in the upper outer quadrant of the left breast. The study is incomplete. A diagnostic left breast mammogram and a diagnostic left breast ul trasound is recommended. BI-RADS Category 0: Incomplete-needs additional imaging evaluation.
--- OUTSIDE RECORDS SUMMARY | 2024-11-10 08:13 | XMS_ITS | Encounter Summary ---
Author Organization [facility] Address [address] [place] [address] Care Team Providers Care Aluminum Shingle Roofer Name Role Phone Spring Smith MD Primary Care Provider [phone] Encounter Details Date Type Department Care Team (Late st Contact Info) Description 09/17/2006 Outpatient Historical HIS [facility] Spring Mims MD [address] [facility] [address] [place] [address] Solitary Cyst of Breast (Primary Dx) Social History Tobacco Use Types Packs/Day Years Used Date Smoking Tobacco: Never Assessed Comments Unknown Sex and Gender Information Value Date Recorded Sex Assigned at Not on file Legal Sex Female 4:55 AM ENTRY EXAMINER Gender Identity Not on file Sexual Orientation Not on file documented as of this encounter Plan of Treatment Not on file documented as of this encounter Visit Diagnoses Diagnosis Solitary cyst of breast- Primary documented in this encounter Care Teams Aluminum Shingle Roofer Relationship Specialty Start Date End Date Spring Smith MD [address] [place] [address] [address] [place] [address] PCP - General 09/26/03 documented as of this encounter
--- OUTSIDE RECORDS SUMMARY | 2024-11-10 08:13 | XMS_ITS | Encounter Summary ---
Author Organization [facility] Address [address] [place] [address] Care Team Providers Care Accountant Tax Name Role Phone Spring Smith MD Primary Care Provider [phone]- [phone] Encounter Details Date Type Department Care Team (Late st Contact Info) Description 09/26/2003 Inpatient Historical HIS [facility] Rhett Garcia MD NO ADDRESS ON FILE Ness [place] MD [address] [facility] [address] [id number] SOLITARY CYST OF BREAST (Primary Dx) Social History Tobacco Use Types Packs/Day Years Used Date Smoking Tobacco: Never Assessed Comments Unknown Sex and Gender Information Value Date Recorded Sex Assigned at Not on file 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
--- OUTSIDE RECORDS SUMMARY | 2024-11-10 08:13 | XMS_ITS | Encounter Summary ---
Author Organization [facility] Address [address] [place] [address] Care Team Providers Care Events Intern Name Role Phone Spring Smith MD Primary Care Provider +1- [phone] Encounter Details Date Type Department Care Team (Late st Contact Info) Description 09/17/2006 Inpatient Historical HIS [facility] Rhett Garcia MD NO ADDRESS ON FILE Spring Smith MD [address] [facility] [address] [place] [address] Solitary Cyst of Breast (Primary Dx) Social History Tobacco Use Types Packs/Day Years Used Date Smoking Tobacco: Never Assessed Comments Unknown Sex and Gender Information Value Date Recorded Sex Assigned at Not on file Legal Sex Female 4:[address] Gender Identity Not on file Sexual Orientation Not on file documented as of this encounter Plan of Treatment Not on file documented as of this encounter Visit Diagnoses Diagnosis Solitary cyst of breast- Primary documented in this encounter Care Teams Events Intern Relationship Specialty Start Date End Date Spring Smith MD [address] [facility] [address] [place] [address] PCP - General 09/26/03 documented as of this encounter
--- OUTSIDE RECORDS SUMMARY | 2024-11-10 08:13 | XMS_ITS | Encounter Summary ---
Author Organization [facility] Address [address] [place] [address] Care Team Providers Care Pvc Loader Name Role Phone Spring Smith MD Primary Care Provider +1- [phone] Encounter Details Date Type Department Care Team (Late st Contact Info) Description 07/18/2004 Outpatient Historical [facility] Support Serv. ([facility]t Card[facility]) [address] 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
--- OUTSIDE RECORDS SUMMARY | 2024-11-10 08:13 | XMS_ITS | Encounter Summary ---
Author Organization [facility] Address [address] [place] [address] Care Team Providers Care Finishing Powder Press Operator Name Role Phone Spring Smith MD Primary Care Provider [phone]- [phone] Encounter Details Date Type Department Care Team (Late st Contact Info) Description 11/14/2003 Inpatient Historical HIS [facility] Rhett Garcia MD NO ADDRESS ON FILE Spring Smith MD [address] [facility] [address] [place] [address] DIFFUS CYSTIC MASTOPATHY (Primary Dx) Social History Tobacco Use Types Packs/Day Years Used Date Smoking Tobacco: Never Assessed Comments Unknown Sex and Gender Information Value Date Recorded Sex Assigned at Not on file 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
--- OUTSIDE RECORDS SUMMARY | 2024-11-10 08:14 | XMS_ITS | Clinical Summary ---
Author Organization [facility] Address [address] [place] [address] Phone Care Team Providers Care Track Moving Machine Operator Name Role Phone Spring Smith MD Primary Care Provider Allergies Active Allergy Reactions Criticality Noted Date Comments Gabapentin Nausea and Vomiting Low 07/13/2020 Naproxen Other (See Comments) 07/20/2018 Leg cramps Tramadol Nausea and Vomiting Low 10/01/2018 Ultra Tabs Nausea and Vomiting Low 10/01/2018 Medications rosuvastatin (CRESTOR) 20 mg tabletIndicatio ns:hyperlipidem ia Take 20 mg by mouth daily at bedtime. 11 06/25/2018 Active VITAMIN D2 50,000 unit capsule 04/21/2018 Active CALCIUM ORAL Take by mouth 2 times daily. Active ascorbic acid (VITAMIN C ORAL) Take by mouth. Active flaxseed oil (OMEGA 3 ORAL) Take by mouth. Active cyanocobalamin (VITAMIN B-12) 500 mcg tablet Take 500 mcg by mouth daily. Active VITAMIN E ACETATE ORAL Take by mouth. Active aspirin (ECOTRIN EC) 81 mg Tablet, Delayed Release (E.C.) Take 81 mg by mouth daily. Active psyllium husk (METAMUCIL ORAL) Take by mouth daily. Active DULoxetine (CYMBALTA) 30 mg Capsule, Delayed Release(E.C.)In dications:pain Take 30 mg by mouth 2 times daily. Active acetaminophen (TYLENOL) 325 mg tablet Take 2 Tablets (650 mg) by mouth every 6 hours as needed for Other (See Comment) (See admin instructions ). 07/27/2020 Active ibuprofen (MOTRIN) 400 mg tablet Take 1 Tablet (400 mg) by mouth every 6 hours as needed for Pain, Mild. 07/27/2020 Active Active Problems Problem Noted Date Diagnosed Date Abnormal REM sleep, suspected 07/27/2020 Overview (07/27/2020): 07/27/2020: [facility] providers are arranging OP PSG for concerns that memory issues may be 2/2 a sleep disorder, OP f/u with Dr Schulz Mild cognitive impairment with memory loss 07/25 History of vaginal surgery 07/25/2020 Dyspareunia, female 07/23/2020 Vaginal prolapse 10/29/2018 Chronic pain disorder 07/28/2018 Asthma 07/28/2018 Transient ischemic attack 07/28/2018 Full incontinence of feces 06/24/2018 Degenerative disc disease, lumbar 05/13/2018 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, with R altered sensation and pain Hypercholesteremia 04/05/2018 Lentigines 08/05/2017 Rosacea 08/05/2017 Seborrheic keratosis 08/05/2017 Osteoporosis 02/20/2015 Abnormal finding on urinalysis Hallucinations, unspecified Resolved Problems Problem Noted Date Diagnosed Date Resolved Date Acute encephalopathy 07/25/2020 021 Immunizations Immunization Administration Dates Next Due (SHINGRIX)(50 YRS UP) ZOSTER VACCINE RECOMBINANT, 0.5 ML, IM 04/09/2018,02/06/2018 (SPIKEVAX) (12 YRS UP PRIMAR Y SERIES) COVID-19 VACCINE - [id number](PF) 100 MCG/0.5 ML IM SUSP 05/18/2020,04/20/2020 Influenza Seasonal Unspecified Formulation IM Family History Medical History Relation Name Comments Heart Disease Father Hypertension Mother Ovarian Cancer Neg Hx Relation Name Status Comments Father Mother Alive Social History Tobacco Use Types Packs/Day Years Used Date Smoking Tobacco: Never Smokeless Tobacco: Never Alcohol Use Standard Drinks/Week Comments Yes 0 (1 standard drink = 0.6 oz pur e alcohol) rare Comments No Sex and Gender Information Value Date Recorded Sex Assigned at Not on file 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 Gender Identity Not on file Sexual Orientation Not on file 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 Not on file Not on file Not on file Last Filed Vital Signs Vital Sign Reading Time Taken Comments Blood Pressure 128/57 07/27/2020 5:03 AM CDT Pulse 71 07/27/2020 5:03 AM CDT Temperature 36.5 C (97.7 F) 07/27/2020 5:03 AM CDT Respiratory Rate 16 07/27/2020 5:03 AM CDT Oxygen Saturation 100% 07/27/2020 5:03 AM CDT Inhaled Oxygen Concentration - - Weight 63.5 kg (140 lb) 10/22/2020 1:06 PM CDT Height 165.1 cm (5' 5) 10/22/2020 1:06 PM CDT Body Mass Index 23.3 10/22/2020 1:06 PM CDT Plan of Treatment Health Maintenance Due Date Last Done Comments DTAP/TDAP/TD VACCINES (1 - Tdap) 1973 FIT-DNA Q 3 years 09/12/1999 FIT/FOBT Q 1 year 09/12/1999 Flex Sig/CT Colonography Q 5 years 09/12/1999 RSV VACCINE (60+ or ) (1 - Risk 60-74 years 1-dose series) 2014 PNEUMOCOCCAL VACCINE 50+ YEA RS (2 of 2 - PPSV23, PCV20, or PCV21) 03/16/2020 01/20/2020 COLORECTAL SCREENING 03/09/2023 03/09/2013 (Previously completed) Colorectal Cancer Screening 03/09/2023 BREAST CANCER SCREENING 06/20/2023 06/20/19 23, 02/19/2021, 08/10/2019, Additional history exists INFLUENZA VACCINE (#1) 2024 0, 12/09/2018, 12/07/2017, Additional history exists COVID-19 Vaccine (3 - 2024-2 6 season) 2024 05/18/2020, 04/20/2020 OSTEOPOROSIS SCREENING 01/03/2027 2, 12/21/2020, 12/21/2020, Additional history exists ZOSTER VACCINE Completed 05/05/2018, 03/2018, 03/05/2018, Additional history exists Medical Devices Implanted Type Area Test And Turn Up Technician Device Identifier Shelf Expiration Date Model / Serial / Lot Sling Desara System Mandy-Ds01 - [id number] Implanted:Qty: 1 on 10/29/2018 by Buddy Vazquez MD at [facility] Sling N/A: Vagina [employer] 06/24/2023 MANDY-DS01 / / [id number] Procedures Procedure Name Priority Date/Time Associated Diagnosis Comments MAMMO 3D HENRRY SCREEN BILAT W OR WO CAD Routine 06/19/2022 11:05 AM CDT Breast cancer screening by mammogram XR DEXA BONE DENSITY AXIAL 1 OR MORE SITES Routine 05/25/2013 2:06 PM CDT Symptomatic menopausal or female climacteric states from Last 3 Months or Most Recently Relevant to Health Maintenance Results * MAMMO SCRN BILAT 3D HENRRY W OR WO CAD (06/19/2022 11:05 AM CDT) Anatomical Region Laterality Modality Breast Bilateral Mammography 06/19/2022 11:0 7 AM CDT Impressions 06/20/2022 11:52 AM CDT IMPRESSION: No mammographic evidence of malignancy. OVERALL FINAL ASSESSMENT: BI-RADS Category 1: Negative mammogram. RECOMMENDATION: Bilateral screening mammogram in one year. DICTATION LOCATION: [facility] Narrative 06/20/2022 11:52 AM CDT BILATERAL SCREENING DIGITAL MAMMOGRAM WITH 3D TOMOSYNTHESIS AND CAD DATE: 06/19/2022 11:05 AM COMPARISON: Multiple prior mammograms, dating back to 12/27/2015 and most recently 02/19/2021. HISTORY: Screening mammogram. TECHNIQUE: Low-dose full-field digital breast tomosynthesis examination was performed with 2D and 3D acquisitions. Examination is read in conjunction with computer aided detection. BREAST COMPOSITION: The breasts are heterogeneously dense, which may obscure small masses. FINDINGS: The best possible images were obtained. There is no suspicious mass, clustered microcalcification, or architectural distortion in either breast on 2D or 3D images. There has been no change in the mammographic appearance compared with the prior study. Procedure Note Kyle Mckeon MD - 06/20/2022 BILATERAL SCREENING DIGITAL MAMMOGRAM WITH 3D TOMOSYNTHESIS AND CAD DATE: 06/19/2022 11:05 AM COMPARISON: Multiple prior mammograms, dating back to 12/27/2015 and most recently 02/19/2021. HISTORY: Screening mammogram. TECHNIQUE: Low-dose full-field digital breast tomosynthesis examination was performed with 2D and 3D acquisitions. Examination is read in conjunction with computer aided detection. BREAST COMPOSITION: The breasts are heterogeneously dense, which may obscure small masses. FINDINGS: The best possible images were obtained. There is no suspicious mass, clustered microcalcification, or architectural distortion in either breast on 2D or 3D images. There has been no change in the mammographic appearance compared with the prior study. IMPRESSION: No mammographic evidence of malignancy. OVERALL FINAL ASSESSMENT: BI-RADS Category 1: Negative mammogram. RECOMMENDATION: Bilateral screening mammogram in one year. DICTATION LOCATION: [facility] us Spring Smith MD MAMMO ORDERABLES Final Resu lt * XR DEXA BONE DENSITY AXIAL 1 OR MORE SITES (05/25/2013 2:06 PM CDT) Anatomical Region Laterality Modality Digital Radiogra phy 05/25/2013 2:06 PM CDT Narrative 05/25/2013 2:17 PM CDT Examination: Bone Density Study (DXA) Clinical History: 57 year-old postmenopausal female. Compared to the prior bone density performed 10/10/2010 Findings: Lumbar Spine (L1-L4) T-score -0.1 1.17 g/sq cm Prior: 1.13 g/sq cm 3.4 % change Left femoral neck T-score -0.4 0.98 g/sq cm Prior: 0.99 g/sq cm -0.4 % change Right femoral neck T-score -0.4 0.98 g/sq cm Prior: 0.97 g/sq cm 1.4 % change IMPRESSION Normal bone mineral densities. Detailed report placed in [facility]. Dictated by Dr. Jey Arana MD Dictated from Location 1. Procedure Note Jey Arana MD - 05/25/2013 Examination: Bone Density Study (DXA) Clinical History: 57 year-old postmenopausal female. Compared to the prior bone density performed 10/10/2010 Findings: Lumbar Spine (L1-L4) T-score -0.1 1.17 g/sq cm Prior: 1.13 g/sq cm 3.4 % change Left femoral neck T-score -0.4 0.98 g/sq cm Prior: 0.99 g/sq cm -0.4 % change Right femoral neck T-score -0.4 0.98 g/sq cm Prior: 0.97 g/sq cm 1.4 % change IMPRESSION Normal bone mineral densities. Detailed report placed in [facility]. Dictated by Dr. Jey Arana MD Dictated from Location 1. Spring Smith MD DIAGNOSTIC IMAGING ORDERABL ES Final Result from Last 3 Months or Most Recently Relevant to Health Maintenance Insurance RX [employer] RX Member Subscriber Plan / Payer (Ef fective 2019-Present) Name:Violeta Kelley Relation to Subscriber:Self Name:Violeta Kelley Payer ID:Not on file Group ID:[id number] Type:RX Medicare Part D Address: [place] [address] Advance Directives For more information, please contact: [phone] * Full Code (Latest Code Status on File) Date Activated Date Inactivated Comments 07/25/2020 11:51 PM 07/27/2020 1:01 PM * Full Code Date Activated Date Inactivated Comments 07/23/2020 10:11 AM 07/23/2020 7:16 PM * Full Code Date Activated Date Inactivated Comments 10/29/2018 8:24 AM 10/29/2018 1:15 PM Care Teams Track Moving Machine Operator Relationship Specialty Start Date End Date Spring Smith MD [address] [facility] [address] [address] PCP - General 09/26/03
--- OUTSIDE RECORDS SUMMARY | 2024-11-10 08:14 | XMS_ITS | Encounter Summary ---
Author Organization [facility] Address [address] [place] [address] Care Team Providers Care Tank Car Mechanic Name Role Phone Spring Smith MD Primary Care Provider +1- [phone] Encounter Details Date Type Department Care Team (Late st Contact Info) Description 10/27/2005 Outpatient Historical HIS [facility] Osiel Mims MD [address] 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
--- OUTSIDE RECORDS SUMMARY | 2024-11-10 08:14 | XMS_ITS | Encounter Summary ---
Author Organization [facility] Address 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
--- OUTSIDE RECORDS SUMMARY | 2024-11-10 08:14 | XMS_ITS | Clinical Summary ---
Author Organization [facility] Address [address] [place] [address] Care Team Providers Care Insole Beveler Name Role Phone Spring Smith MD Primary Care Provider + Allergies Active Allergy Reactions Criticality Noted Date Comments Naproxen Muscle pain Medium 03/31/2018 LEG CRAMPS Tramadol Nausea only,Nausea & Vomiting Low 2018 Medications aspirin 81 mg tabletIndicatio ns:prevention of thrombosis Take 1 tablet (81 mg total) by mouth every morning Active calcium carbonate (CALCIUM 500 ORAL)Indication s:supplement Take 1 tablet by mouth daily 600 mg Active acetaminophen (TYLENOL) 500 mg tablet Take 2 tablets (1,000 mg total) by mouth every 6 (six) hours as needed for pain Most nights Active cholecalciferol (VITAMIN D-3) 1,000 unit capsuleIndicati ons:Vitamin D Deficiency Take 1 capsule (1,000 Units total) by mouth every morning Active ProAir RespiClick 90 mcg/actuation inhaler INHALE 2 PUFFS BY MOUTH EVERY 6 HOURS NEEDED FOR SHORTNESS OF BREATH 2 Active Myrbetriq 25 mg tablet extended release 24 hr Take 1 tablet (25 mg total) by mouth daily 4 Active rosuvastatin (CRESTOR) 20 mg tablet Take 1 tablet (20 mg total) by mouth daily Active clonazePAM (KlonoPIN) 0.5 mg tablet Take 1 tablet (0.5 mg total) by mouth daily as needed for anxiety Insomnia Active QUEtiapine (SEROquel) 25 mg tablet TAKE 1/2 TABLET BY MOUTH EVERY DAY AT BEDTIME 4 Active vibegron (Gemtesa) 75 mg tablet Take by mouth Active risperiDONE (RisperDAL) 0.5 mg tablet Take 1-2 tablets (0.5-1 mg total) by mouth nightly 4 Active sulfamethoxazol e-trimethoprim (BACTRIM DS) 800-160 mg per tablet Take 1 tablet by mouth every 12 (twelve) hours 4 Active lecanemab-irmb (LEQEMBI IV) Infuse 10 mg/kg into a venous catheter Active donepeziL (ARICEPT) 5 mg tablet Take 1 tablet (5 mg total) by mouth nightly 90 tablet 3 5 Active memantine (NAMENDA) 10 mg tablet TAKE 1 TABLET BY MOUTH TWICE DAILY 180 tablet [address] (CYMBALTA) 60 mg capsuleIndicati ons:Dejerine-Ro ussy syndrome Take 1 capsule (60 mg total) by mouth daily 90 capsule 3 5 10/28/[address] (CYMBALTA) 30 mg capsuleIndicati ons:Dejerine-Ro ussy syndrome TAKE 2 CAPSULES BY MOUTH DAILY 180 capsule 3 4 10/28/19 25 Discontinu ed(Reorder ) Active Problems Problem Noted Date Diagnosed Date Alzheimer's disease 05/21/2023 Assessment & Plan (05/21/2023 10:58 AM CDT): Cerebral spinal fluid c/w AD, discussed options for lecanemab/Leqembi, CS and patient will discuss with daughter and let us know. IVONNE (obstructive sleep apnea) 04/02/2021 Overview (12/04/2021): DIAGNOSIS: Obstructive sleep apnea PROCEDURE PERFORMED:(Camron 11/15/2021) Right hypoglossal nerve stimulator implantation Generator placement right chest wall Lead placement right intercostal muscle Osteopenia of multiple sites 12/21/2020 Hallucinations, unspecified 08/14/2020 Disturbance in sleep behavior 08/14/2020 Snoring 08/14/2020 Abnormal REM sleep 07/27/2020 Overview (08/14/2020): 07/27/2020: [facility] providers are arranging OP PSG for concerns that memory issues may be 2/2 a sleep disorder, OP f/u with Dr Schulz History of vaginal surgery 07/25/2020 Asthma 07/28/2018 Chronic pain disorder 07/28/2018 Transient ischemic attack 07/28/2018 Overview (04/13/2023): Followed by Dr. 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 We will continue Cymbalta 60 mg daily (she takes it as 30 mg BID). Continues aspirin 81 mg daily and rosuvastatin 20 mg daily. Assessment & Plan (04/13/2023 3:46 PM TOP FRAME FITTER): Followed by Dr. 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 We will continue Cymbalta 60 mg daily (she takes it as 30 mg BID). Continues aspirin 81 mg daily and rosuvastatin 20 mg daily. 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, with R altered sensation and pain Hypercholesteremia 04/05/2018 Llamas angioma 08/05/2017 Fibrous papule of skin 08/05/2017 Lentigines 08/05/2017 Pruritus 08/05/2017 Rosacea 08/05/2017 Seborrheic keratosis 08/05/2017 Spider veins 08/05/2017 Disorder of bone 06/24/2016 Osteoporosis 02/20/2015 Resolved Problems Problem Noted Date Diagnosed Date Resolved Date Progressive dementia with uncertain etiology 4 05/21/2023 Assessment & Plan (04/13/2023 3:44 PM TOP FRAME FITTER): Continue donepezil/Aricept 5 mg (did not increase d/t dreams, talking in sleep) Discussed lecanemab/Leqembi, she needs confirmatory testing first, they will read over options, this was discussed and let us know their preference Mild cognitive impairment with memory loss 07/25/2020 04/13/2023 Memory loss or impairment 06/26/2020 Encounters Date Type Department Care Team Description 11/02/2024 9:44 AM CDT - 11/02/2024 11:59 PM CDT Hospital Encounter [address] [address] Rose Mary Cordova RN Age-related osteoporosis without current pathological fracture (Primary Dx); Alzheimer's disease Discharge Disposition: Discharge to home or self care 10/27/2024 2:30 PM CDT Office Visit [facility] [address] [place] [address] Ever Hernandez MD Dejerine-Roussy [facility] 10/19/2024 1:48 PM CDT - 10/19/2024 11:59 PM CDT Hospital Encounter [address] [address] Melvi Layton RN Age-related osteoporosis without current pathological fracture (Primary Dx); Alzheimer's disease Discharge Disposition: Discharge to home or self care 10/05/2024 1:46 PM CDT - 10/05/2024 11:59 PM CDT Hospital Encounter [address] [address] Jennifer Ceballos RN Age-related osteoporosis without current pathological fracture (Primary Dx); Alzheimer's disease (HCC) Discharge Disposition: Discharge to home or self care 09/21/2024 1:44 PM CDT - 09/21/2024 11:59 PM CDT Hospital Encounter [address] [address] Age-related osteoporosis without current pathological fracture (Primary Dx); Alzheimer's disease (HCC) Discharge Disposition: Discharge to home or self care 09/07/2024 12:53 PM CDT - 09/07/2024 11:59 PM CDT Hospital Encounter [address] [address] Age-related osteoporosis without current pathological fracture (Primary Dx); Alzheimer's disease (HCC) Discharge Disposition: Discharge to home or self care 08/25/2024 8:45 AM CDT Office Visit [facility] [address] [address] Brianne Poe NP Alzheimer's disease (HCC) (Primary Dx) 08/25/2024 Documentation [facility] [address] [address] Mc Castillo MSW 08/24/2024 2:00 PM CDT - 08/24/2024 11:59 PM CDT Hospital Encounter [address] [address] Age-related osteoporosis without current pathological fracture (Primary Dx); Alzheimer's disease (HCC) Discharge Disposition: Discharge to home or self care 08/17/2024 2:05 PM CDT - 08/17/2024 11:59 PM CDT Hospital Encounter [address] [address] Age-related osteoporosis without current pathological fracture (Primary Dx) Discharge Disposition: Discharge to home or self care 08/10/2024 1:39 PM CDT - 08/10/2024 11:59 PM CDT Hospital Encounter [address] [address] Age-related osteoporosis without current pathological fracture (Primary Dx); Alzheimer's disease (HCC) Discharge Disposition: Discharge to home or self care from Last 3 Months Immunizations Immunization Administration Dates Next Due Influenza, Quadrivalent, Mayra l Culture-based MDCK, Preservative Free, Antibiotic Free, Intramuscular 12/09/2018 Influenza, Quadrivalent, Hig h Dose, Preservative Free, Intrr 11/16/2019 Influenza, Quadrivalent, Spl it, Preservative Free, Intramuscular 11/30/2017 Influenza, Trivalent, IM (MDV) 12/07/2017 Influenza, Trivalent, Preser vative Free, Intramuscular 12/10/2014 Moderna SARS-CoV-2 Monovalen t Vaccination (12+ YRS) 05/18/2020,04/20/2020 Pneumococcal Conjugate PCV 13 01/20/2020 ZOSTER Recombinant 05/05/2018, 9,03/05/2018,02/15 Surgical History Surgery Date Site/Laterality Comments COLONOSCOPY 03/09/2017 - 03/08/2018 CHOLECYSTECTOMY 03/09/2006 - 03/08/2007 SECTION 03/09/1983 - 03/08/1984 twins VAGINAL PROLAPSE REPAIR 07/23/2020 admitted 07/25 - 07/27/20 w acute encephalopathy - unceratain temporal events b/t anesthesia and AMS; refer to discharge summary in [facility] for details; Dr Rajan rec holding scopoloamine patch w 06/21/21 procedure HYSTERECTOMY 03/09/2006 - 03/08/2007 OTHER SURGICAL HISTORY 06/14/2021 Sleep Endoscopy Medical History Medical History Date Comments Asthma Cystocele with prolapse TIA (transient ischemic attack) TIA (transient ischemic attack) 2017 numbness in fingers in right; contractures present in right hand Postoperative delirium 07/23/2020 admitted 07/25 - 07/27/20 w acute encephalopathy following REPAIR WELDER prolapse surgery 07/23/20 - notes in [facility] PONV (postoperative nausea a nd vomiting) mild nausea post op; patch w as used w last surgery (07/23/20) and suffered post op delirium Family History Medical History Relation Name Comments Cancer Father Dad Alzheimer's disease Mother Mom Broken bones Mother Mom Curvature of spine Mother Mom Curvature of spine - (Added by TW Conv) Hip fracture Mother Mom Family history of hip fracture - (Added by TW Conv) Osteoporosis Mother Mom Family history of osteoporosis - (Added by TW Conv) Osteoporosis Other Family history of osteoporosis - Relation: Aunt (Added by TW Conv) Curvature of spine Sister 1 Curvature of spine - (Added by TW Conv) Other Sister 2 Fractures - (Ad ded by TW Conv) Anesthesia problems Neg Hx Kyphosis Neg Hx Malig Hyperthermia Neg Hx Pseudochol deficiency Neg Hx Scoliosis Neg Hx Relation Name Status Comments Father Dad Mother Mom Other Sister 1 Sister 2 Social History Tobacco Use Types Packs/Day Years Used Date Smoking Tobacco: Never Smokeless Tobacco: Never Tobacco Cessation:Counseling Given: Not Answered Alcohol Use Standard Drinks/Week Comments Not Currently 0 (1 standard drink = 0.6 oz pur e alcohol) AUDIT-C Answer Date Recorded Q1: How often do you have a drink containing alc ohol? Monthly or less 11/15/2021 Q2: How many drinks containi ng alcohol do you have on a typical day when you are drinking? 1 or 2 11/15/2021 Q3: How often do you have si x or more drinks on one occasion? 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 [employer] Not on file Not on file Not on file Obstetrics History Para Term AB IAB SAB Ectopic Multiple Livin g Live Births 2 2 2 1 3 3 Date Outcome GA Total Labor Labor/2nd/3rd Weight Sex Type Anes PTL Claudia A1 A5 Name Clin Term Vag-S pont Living Term CS-Un spec Living Term CS-Un spec Living Last Filed Vital Signs Vital Sign Reading Time Taken Comments Blood Pressure 125/78 11/02/2024 10:00 AM CDT Pulse 73 11/02/2024 10:00 AM CDT Temperature 36.8 C (98.2 F) 10/27/2024 2:16 PM CDT Respiratory Rate 18 11/02/2024 10:00 AM CDT Oxygen Saturation 100% 11/02/2024 10:00 AM CDT Inhaled Oxygen Concentration - - Weight 55.1 kg (121 lb 8 oz) 10/27/2024 2:16 PM CDT Height 167.6 cm (5' 6) 09/07/2024 12:53 PM CDT Body Mass Index 19.61 09/07/2024 12:53 PM CDT Plan of Treatment Health Maintenance Due Date Last Done Comments Colon Cancer Screening-Colonoscopy 1955 Depression Screening 1955 Hepatitis C Screening 1955 Hepatitis B Screening 1972 Well Visit 65+ 09/12/2019 DTaP/Tdap/Td Vaccine (2 - Td or Tdap) 11/18/2021 11/19/2011, 11/21/1999 Breast Cancer Screening-Mammogram 06/20/2023 06/19/2022, 06/19/2022, 02/19/2021, Additional history exists Fall Risk Assessment 09/06/2023 09/05/2022, 11/16/19 Covid-19 Vaccine (5 - 2024-2 6 season) 2024 10/18/2021, 01/25/2021, 05/18/2020, Additional history exists Influenza Vaccine (#1) 2024 , 12/09/2022, 10/20/2020, Additional history exists Osteoporosis Screening-Bone Density Scan 07/08/2026 07/08/2024, 06/29/2023, 01/03/2022, Additional history exists Zoster Vaccine Completed 05/05/2018, 03/2018, 03/05/2018, Additional history exists Pneumococcal vaccine 65+ Completed 11/05/2021, 01/07 Medical Devices Implanted Type Area Knot Tying Operator Device Identifier Shelf Expiration Date Model / Serial / Lot [employer] Inspire 3 Electrode Cuff Tunnel Spenser Lead Neurostimulator Sterile 4063 - [id number] - [id number] Implanted:Qty: 1 on 11/15/2021 by Diego Lyon MD at [facility] Right: Chest Wall [employer] 05/14/2023 4063 / [id number] / [employer] Inspire Generator 3028 - [id number] - [id number] Implanted:Qty: 1 on 11/15/2021 by Diego Lyon MD at [facility] Right: Chest Wall [employer] 01/19/2024 3028 / [id number] / [employer] Lead Neurostimulator Inspire Respiratory Sens Cycle Strl Lf 4340 - [id number] - [id number] Implanted:Qty: 1 on 11/15/2021 by Diego Lyon MD at [facility] Right: Chest Wall [employer] 02/25/2023 4340 / [id number] / Procedures Procedure Name Priority Date/Time Associated Diagnosis Comments DEXA TBS AXIAL SKELETON BONE DENSITY 1 OR MORE SITES Schedule Routine, Read Routine (OP Routine) 07/08/2024 9:04 AM CDT Age-related osteoporosis without current pathological fracture from Last 3 Months or Most Recently Relevant to Health Maintenance Results * Dexa TBS Axial Skeleton Bone Density 1 or more sites (07/08/2024 9:04 AM CDT) Anatomical Region Laterality Modality Wrist, Body N/A Radiographic Diana ging Narrative 07/15/2024 12:17 PM CDT Patient Name: Violeta Kelley Date of : 1955 Date of scan: 07/08/2024 Bone mineral density was performed on a [employer] Discovery Densitometer. Based on machine cross-calibration and precision studies the least significant changes of this densitometer is 0.024 g/cm2 at the spine, 0.020 g/cm2 at the total proximal femur, and 0.014g/cm2 at the forearm. HISTORY: This is a 68 y.o. postmenopausal female with a history of asthma and low bone mass. She reports that she has never smoked. She has never used smokeless tobacco. Currently on treatment with calcium and vitamin D and previously treated with zoledronic acid (Reclast). INDICATIONS: Menopause status and history of low bone mass. FINDINGS: BONE MINERAL DENSITY OF THE LUMBAR SPINE Bone Mineral Density (BMD) of the lumbar spine was measured from L1-L4 and the average density was calculated to be 0.808 gm/cm2. This corresponds to a T-score (standard deviations from the mean of young adults) of -2.2. When compared to the previous study of 06/29/2023 there has been a -0.041 gm/cm (-4.8%) decrease in bone density that is considered significant. BONE MINERAL DENSITY OF THE PROXIMAL FEMUR Bone Mineral Density (BMD) of the left hip total was found to be 0.691 gm/cm2. This corresponds to a T-score standard deviations from the mean of young adults of -2.1. Femoral neck is 0.625 gm/cm2 with a T-score (standard deviations from the mean of young adults) of -2.0. When compared to the previous study of 06/29/2023 there has been a -0.032 gm/cm (-4.4%) decrease in bone density that is considered significant. SUMMARY: Bone mineral density shows evidence of low bone mass at the lumbar spine and proximal femur and moderately increased fracture risk (Osteopenia). There has been a significant decrease in bone density since previous measurement. The lumbar spine Trabecular Bone Score is 1.291 which suggests partially degraded bone microarchitecture compared to the general population. Final decisions regarding diagnostic or therapeutic recommendations should include BMD, TBS, additional clinical risk factors as well the clinical context of the patient. Please see attached TBS results for further details. ADDITIONAL COMMENTS: Postmenopausal Women and Men Over 50: Diagnostic criteria: Osteoporosis: BMD at or below -2.5 T-score; Osteopenia (low bone mass): BMD between -1.0 and -2.5 T-score. If the patient has a history of a fragility fracture, a fracture that occurred with trauma equivalent to a fall from a standing position or less, then the diagnosis is osteoporosis regardless of bone density. The history and data sections of the bone mineral density scan were prepared by RT Luis who is accredited by the International Society of Clinical Densitometry. The overall patient assessment and scan interpretation were performed by Linda Bennett M.D. who is certified by the International Society of Clinical Densitometry. [id number] Asuncion Michael [facility] DXA PROCEDURES Final Result from Last 3 Months or Most Recently Relevant to [place] [address] [facility] CHOICE PLUS [facility] HMO/PPO Address: [address] [address] [place] [address] [facility] MDCR HMO REF [facility] MEDICARE Address: [address] [address] [place] [address] [facility] MED[facility] Address: [address] [address] [place] [address] [address] [facility] [place] [id number] [facility] MEDICARE ADVANTAGE [facility] MEDICARE Address: [address] [address] [place] [address] Care Teams Insole Beveler Relationship Specialty Start Date End Date Spring Smith MD [facility] - General 07/04/16
--- OUTSIDE RECORDS SUMMARY | 2024-11-10 08:14 | XMS_ITS | Encounter Summary ---
Author Organization [facility] Address [address] [place] [address] Care Team Providers Care Technical Buyer Name Role Phone Spring Smith MD Primary Care Provider [phone] Encounter Details Date Type Department Care Team (Latest Contact Info) Description 07/18/2004 Outpatient Historical [facility] Ever Mccormick MD [address] [place] [address] [address] [facility] [place] [address] LEDY W PEEWEEYS NEC (Primary Dx) Social History Tobacco Use Types Packs/Day Years Used Date Smoking Tobacco: Never Assessed Comments Unknown Sex and Gender Information Value Date Recorded Sex Assigned at Not on file Legal Sex Female 4:55 AM STOCK TRADER Gender Identity Not on file Sexual Orientation Not on file documented as of this encounter Plan of Treatment Not on file documented as of this encounter Procedures Procedure Name Priority Date/Time Associated Diagnosis Comments POC , URINE Routine 07/18/2004 7:39 AM CDT documented in this encounter Results * POC , URINE (07/18/2004 7:39 AM CDT) HCG QUAL URINE Negative Negative INTER FACE SYSTEM SPECIFIC GRAVITY UA 1.020 1.001 - 1.035 INTERFACE SYSTEM 07/18/2004 7:39 AM CDT Ever Mccormick MD POINT OF CARE TESTING Final R esult INTERFACE SYSTEM Refer to clinic/hospital department documented in this encounter Visit Diagnoses Diagnosis Calculus of gallbladder with other cholecystitis, without mention of obstruction- Primary documented in this encounter Care Teams Technical Buyer Relationship Specialty Start Date End Date Spring Smith MD [address] [facility] [address] [place] [address] PCP - General 09/26/03 documented as of this encounter
== END 2024-11-10 08:10 | disposition home or self-care (01) ==
LOC: ANHFOHIMG 08:11
PROVIDERS: PCP Family Medicine; Visit Provider Family Medicine
DX: Z12.31 Encounter for screening mammogram for malignant neoplasm of breast (principal); R92.8 Other abnormal and inconclusive findings on diagnostic imaging of breast
CPT/HCPCS: 77063; 77067

== ENCOUNTER 2024-12-16 13:02 | Outpatient (CLI) | payer MEDICARE, SELFPAY ==
--- NOTE | ~2024-12-16 | MMUS_ITS ---
EXAMINATION: MM diagnostic [facility] BI W ofe, US breast BI limited. INDICATION: 69-year old female; BI-RADS 0, callback to evaluate Bilateral focal asymmetry. COMPARISON: 11/10/2024 TECHNIQUE: Digital breast tomosynthesis True lateral and spot compression views of BILATERAL breast were obtained with computer-aided detection to assist in interpretation of the study. FINDINGS: The breasts are heterogeneously dense, which may obscure small masses. The focal asymmetry of concern in the upper right breast effaces on spot compression views compatible with superimposition of fibroglandular tissue. An asymmetry partially persists in the inferior at middle depth within the right breast. Ultrasound was performed for further evaluation. The focal asymmetry of concern in the upper outer left breast partially persists. Ultrasound was performed for further evaluation. BILATERAL BREAST ULTRASOUND FINDINGS: Targeted evaluation of the areas of concern was completed. Right breast: No suspicious solid or cystic masses seen in the inferior right breast. Left breast: There is a 0.3 x 0.4 x 0.2 cm circumscribed hypoechoic mass at 12:00 location near the nipple. This finding is compatible with a complicated cyst. At 12:00, near the nipple there is a 0.5 x 0.6 x 0.3 cm anechoic mass compatible with a simple cyst. At 12:00 near the nipple there is a bilobed hypoechoic mass with posterior enhancement that measure 0.6 x 0.5 x 0.3 cm. This is probably benign. At 6:00 location near the nipple, there is a 0.2 x 0.2 x 0.2 cm hypoechoic circumscribed mass. This is probably benign finding. IMPRESSION: 1. Probable Benign LEFT breast masses. Short-term follow-up recommended. 2. The focal asymmetry of concern in both breasts compatible with superimposition of fibroglandular tissue. RECOMMENDATION: 6 month follow-up diagnostic LEFT mammogram and LEFT breast ultrasound. BI-RADS 3, PROBABLY BENIGN Reviewed, dictated and finalized at location B. IMPRESSION: 1. Probable Benign LEFT breast masses. Short-term follow-up recommended. 2. The focal asymmetry of concern in both breasts compatible with superimpositi on of fibroglandular tissue. RECOMMENDATION: 6 month follow-up diagnostic LEFT mammogram and LEFT breast ultrasound. BI-RADS 3, PROBABLY BENIGN
== END 2024-12-16 13:03 | disposition home or self-care (01) ==
LOC: ANHFOHIMG 13:03
PROVIDERS: PCP Family Medicine; Visit Provider Family Medicine
DX: R92.8 Other abnormal and inconclusive findings on diagnostic imaging of breast (principal)
CPT/HCPCS: 76642; 77062; 77066; G0279